=== PATIENT | male | born 1990 | race Caucasian/White ===

== ENCOUNTER 2018-10-14 08:40 | Emergency (ER) | payer MEDICAID, OTHER ==
[~2018-10-14] VITALS: Ht 170.2 cm; Wt 113.4 kg
[2018-10-14 08:50] VITALS: BP_SYST 138
--- NOTE | 2018-10-14 08:59 | NUR ---
Patient to ER bed 3 to gown for evaluation. Side rails up. Report given to Chari ESPINOZA.
--- NOTE | 2018-10-14 09:04 | NUR ---
Patient presented to ER with c/o sharp chest pain. Patient A&Ox4, afebrile, skin pink, pain 8/, denies n/v, pt c/o diarrhea. Patient ambulatory to ER arrived with girl friend. Patient states pain and body aches started Leo with sore throat and congestion. Patient deniies other health history and illnesses.
--- NOTE | 2018-10-14 09:15 | NUR ---
ER Dr. Molina at bedside examining patient.
[2018-10-14] MEDS ORDERED: KETOROLAC TROMETHAMINE 60 MG/2 ML VIAL IM ONE (09:30)
--- NOTE | 2018-10-14 09:50 | NUR ---
Patient reports pain to chestwall. Rates pain 8/10. Gave Toradol IM per MD order.
[2018-10-14 11:10] VITALS: BP_SYST 138
--- NOTE | 2018-10-14 11:10 | NUR ---
Patient given written and verbal discharge instructions and verbalizes understanding. ER MD discussed with patient the results and treatment provided. Patient in stable condition. ID arm band removed. IV catheter removed intact and dressing applied, no active bleeding. Rx of Zithromax, hycodan syrup & Tamiflu given. Patient educated on pain management and to follow up with PMD. Pain Scale 0/10 . Opportunity for questions provided and answered. Medication side effect fact sheet provided.
== END 2018-10-14 11:10 | disposition home or self-care (01) ==
LOC: SED 08:40
DX: J06.9 Acute upper respiratory infection, unspecified (principal); R07.89 Other chest pain; R19.7 Diarrhea, unspecified; R03.0 Elevated blood-pressure reading, without diagnosis of hypertension; R50.9 Fever, unspecified
CPT/HCPCS: 71045; 96372; 99283; J1885